=== PATIENT | male | born 1960 | race American Indian/Alaskan Native ===

== ENCOUNTER 2018-01-05 11:24 | Emergency (ER) | payer OTHER ==
--- NOTE | 2018-01-05 12:48 | C.PDOC ---
History Of Present Illness 57 y/o male with a history of diabetes, non compliant with meds, presents to the ED complaining of fatigue, weakness, frequent urination, and loose stools. He denies chest pain, shortness of breath, nausea, or vomiting. Patient also complains of irritation under the nose. No toothache or sore throat Time Seen by Provider: 01/05/18 12:08 Chief Complaint (Nursing): Medical Clearance History Per: Patient History/Exam Limitations: no limitations Onset/Duration Of Symptoms: Days Current Symptoms Are (Timing): Still Present Past Medical History Reviewed: Historical Data, Nursing Documentation, Vital Signs Vital Signs: Last Vital Signs Temp 97.3 F L 01/05/18 14:53 Pulse 72 01/05/18 14:53 Resp 20 01/05/18 14:53 BP 114/71 01/05/18 14:53 Pulse Ox 97 01/05/18 14:53 - Medical History PMH: Diabetes Family History: States: No Known Family Hx - Social History Hx Alcohol Use: No Hx Substance Use: No - Immunization History Hx Tetanus Toxoid Vaccination: No Hx Influenza Vaccination: No Hx Pneumococcal Vaccination: No Review Of Systems Except As Marked, All Systems Reviewed And Found Negative. Constitutional: Positive for: Weakness, Malaise, Other (fatigue) Physical Exam - Physical Exam Appears: Non-toxic, No Acute Distress Skin: Normal Color, Warm Head: Atraumatic, Normacephalic Eye(s): bilateral: Normal Inspection, PERRL, EOMI Nose: Other (mild irritation to the philtrum of face) Teeth: Normal Dentition, Other (no abscess) Neck: Normal, Supple Chest: Symmetrical Cardiovascular: Rhythm Regular, No Murmur Respiratory: Normal Breath Sounds, No Rales, No Rhonchi, No Wheezing Gastrointestinal/Abdominal: Normal Exam, Soft, No Tenderness, No Distention Extremity: Bilateral: Atraumatic, Normal Color And Temperature, Normal ROM Neurological/Psych: Oriented x3, Normal Speech ED Course And Treatment - Laboratory Results Result Diagrams: 01/05/18 13:06 01/05/18 13:06 ECG: Interpreted By Me ECG Rhythm: Sinus Rhythm (at 77BPM with normal intervals, LVH, T wave inversion at leads 3 and aVF) O2 Sat by Pulse Oximetry: 99 (RA) Pulse Ox Interpretation: Normal - Other Rad Chest X-Ray: Read By Radiologist Interpretation: FINDINGS: LINES AND TUBES: None. LUNG AND PLEURA: The lungs are well inflated and clear. HEART AND MEDIASTINUM: The heart is not enlarged. The hilar and mediastinal contours are within normal limits. SKELETAL STRUCTURES: The bony structures are within normal limits for the patient's age. VISUALIZED UPPER ABDOMEN: Normal. OTHER FINDINGS: None. IMPRESSION: No active pulmonary disease. Medical Decision Making Medical Decision Making: IMPRESSION: Weakness and Early Cellulitis Plan: --EKG --CMP Panel --TROPONIN --CBC W/Differential --XR Chest Two Views --Glucose, POC --IV Fluids 1000ml --Urinalysis 2:16 Patient reports feeling better. Repeat blood sugar is 256. Patient will be discharged home and follow up with Medical clinic. Disposition Counseled Patient/Family Regarding: Studies Performed, Diagnosis, Need For Followup, Rx Given - Disposition Referrals: [facility] [Outside] Disposition: HOME/ ROUTINE Disposition Time: 14:12 Condition: IMPROVED Additional Instructions: follow up with medical clinic in 2 days call to make an appointment take medications as prescribed return to ER if symptoms worsens or progress Prescriptions: MetFORMIN [glucoPHAGE] 500 mg PO BID #40 tab Instructions: Hyperglycemia, Adult (DC) Forms: [facility] (Kosovan), General Discharge Instructions - Clinical Impression Clinical Impression: Diabetes - Scribe Statement The provider has reviewed the documentation as recorded by the Scribe (Marta Friend) Provider Attestation: All medical record entries made by the Scribe were at my direction and personally dictated by me. I have reviewed the chart and agree that the record accurately reflects my personal performance of the history, physical exam, medical decision making, and the department course for this patient. I have also personally directed, reviewed, and agree with the discharge instructions and disposition.
[2018-01-05] MEDS ORDERED: Sodium Chloride 0.9% 1,000 ML IV ONE (13:03)
[2018-01-05 13:21] LABS: URINE BILIRUBIN NEGATIVE (NEGATIVE); URINE BLOOD NEGATIVE (NEGATIVE); URINE CLARITY Clear (Clear); URINE COLOR Straw (YELLOW); URINE GLUCOSE (UA) 3+ mg/dL (Normal); URINE LEUKOCYTE ESTERASE NEG Leu/uL (Negative); URINE PROTEIN NEGATIVE (NEGATIVE); URINE UROBILINOGEN NORMAL mg/dL (0.2-1.0)
[2018-01-05 13:22] LABS: BASO % 0.4 % (0.0-2.0); EOS % 0.4 % (0.0-4.0); HEMOGLOBIN 14.2 g/dL (12.0-18.0); LYMPH # 0.7 K/uL (1.0-4.3); LYMPH % 26.5 % (20.0-40.0); MEAN CELL VOLUME 88.6 fL (80.0-94.0); MEAN CORPUSCULAR HEMOGLOBIN 30.5 pg (27.0-31.0); MEAN CORPUSCULAR HGB CONC 34.4 g/dL (33.0-37.0); MONO # 0.3 K/uL (0.0-0.8); MONO % 10.4 % (0.0-10.0); NEUT # 1.7 K/uL (1.8-7.0); NEUT % 62.3 % (50.0-75.0); NRBC % 0.2 % (0.0-2.0); RBC 4.64 Mil/uL (4.40-5.90)
[2018-01-05 13:23] LABS: WHITE BLOOD COUNT 2.8 K/uL (4.8-10.8)
[2018-01-05 13:38] LABS: ALT/SGPT 23 U/L (21-72); AST/SGOT 24 U/L (17-59); BLOOD UREA NITROGEN 16 mg/dL (9-20); CALCIUM 9.1 mg/dl (8.6-10.4); GFR AFRICAN-AMERICAN > 60; GFR NON-AFRICAN AMERICAN > 60
[2018-01-05] MEDS ORDERED: (Novolin R) Insulin Human Regular 100 units/ml vial IV ONE (13:44)
[2018-01-05] MEDS ORDERED: (Novolin R) Insulin Human Regular 100 units/ml vial ONE (13:49)
[2018-01-05 14:54] VITALS: BP 114/71; PULSE 72; RESP 20; TEMP 97.3
--- NOTE | 2018-01-06 20:26 | CARD ---
APPROVED REPORT EKG Measurement Heart [id number] <Conclusion> Normal sinus rhythm with sinus arrhythmia Possible Left atrial enlargement Left ventricular hypertrophy Abnormal ECG
[2018-01-07 08:01] VITALS: O2SAT 99
== END 2018-01-05 15:17 | disposition home or self-care (01) ==
LOC: C.ER 11:24
DX: E11.9 Type 2 diabetes mellitus without complications (principal); Z91.14 Patient's other noncompliance with medication regimen
CPT/HCPCS: 71046; 80053; 81001; 82948; 84484; 85025; 93005; 96374; 99282; J7040

== ENCOUNTER 2018-01-08 10:42 | Emergency (ER) | payer OTHER ==
--- NOTE | 2018-01-08 11:44 | C.PDOC ---
History Of Present Illness 57 y/o male with a history of diabetes, presents to the ED accompanied by niece for evaluation of high sugar 220 today. She states patient has been taking Metformin but his sugar remains higher than 100. He complains of frequent urination. He denies chest pain, shortness of breath, nausea, or vomiting, abdominal pain or weakness. Time Seen by Provider: 01/08/18 11:34 Chief Complaint (Nursing): High Blood Sugar History Per: Patient History/Exam Limitations: no limitations Onset/Duration Of Symptoms: Days Past Medical History Reviewed: Historical Data, Nursing Documentation, Vital Signs Vital Signs: Last Vital Signs Temp 98 F 01/08/18 11:49 Pulse 78 01/08/18 11:49 Resp 18 01/08/18 11:49 BP 136/76 01/08/18 11:49 Pulse Ox 98 01/08/18 11:49 - Medical History PMH: Diabetes Family History: States: No Known Family Hx - Social History Hx Alcohol Use: No Hx Substance Use: No - Immunization History Hx Tetanus Toxoid Vaccination: No Hx Influenza Vaccination: No Hx Pneumococcal Vaccination: No Review Of Systems Except As Marked, All Systems Reviewed And Found Negative. Cardiovascular: Negative for: Chest Pain, Palpitations Respiratory: Negative for: Shortness of Breath Gastrointestinal: Negative for: Vomiting, Abdominal Pain Genitourinary: Positive for: Frequency Neurological: Negative for: Weakness, Headache, Dizziness Physical Exam - Physical Exam Appears: Non-toxic, No Acute Distress Skin: Normal Color, Warm, Dry, No Rash Head: Normacephalic Eye(s): bilateral: PERRL Nose: Normal Oral Mucosa: Moist Lips: Normal Appearing Neck: Normal ROM Chest: Symmetrical Cardiovascular: Rhythm Regular, No Murmur Respiratory: Normal Breath Sounds, No Accessory Muscle Use Extremity: Normal ROM, No Deformity, No Swelling Neurological/Psych: Oriented x3, Normal Speech ED Course And Treatment O2 Sat by Pulse Oximetry: 99 (RA) Pulse Ox Interpretation: Normal Medical Decision Making Medical Decision Making: Accucheck was 181mg/dL. Patient appears nontoxic and in no distress Prior records reviewed patient was seen recently 3 days ago on 01/05 for hyperglycemia. Labs showed glucose over 300, and no other abnormalities. Patient treated with IV fluid and given Rx Metformin. Disposition - Disposition Referrals: Mariya Hines MD [Staff Provider] - Disposition: HOME/ ROUTINE Disposition Time: 11:43 Condition: STABLE Additional Instructions: Follow up with the clinic in 1-2 days Be sure to take your Metformin twice a day You may call [facility] for any assistance [phone]. Instructions: Diabetes and Diet Forms: [facility] (Jamaican) - POA Present On Arrival: Poor Glycemic Control - Clinical Impression Clinical Impression: Hyperglycemia - Scribe Statement The provider has reviewed the documentation as recorded by the Scribe (Ricki Pagan) All medical record entries made by the Scribe were at my direction and personally dictated by me. I have reviewed the chart and agree that the record accurately reflects my personal performance of the history, physical exam, medical decision making, and the department course for this patient. I have also personally directed, reviewed, and agree with the discharge instructions and disposition.
[2018-01-08 11:50] VITALS: BP 136/76; PULSE 78; RESP 18; TEMP 98
[2018-01-08 14:40] VITALS: O2SAT 99
== END 2018-01-08 11:50 | disposition home or self-care (01) ==
LOC: C.ER 10:42
DX: E11.65 Type 2 diabetes mellitus with hyperglycemia (principal); Z79.84 Long term (current) use of oral hypoglycemic drugs

== ENCOUNTER 2018-05-07 11:30 | Emergency (ER) | payer OTHER ==
[2018-05-07 11:30] VITALS: BMI 29.9
[2018-05-07 11:41] VITALS: O2SAT 98
--- NOTE | 2018-05-07 12:17 | C.PDOC ---
History Of Present Illness 57 y/o male presents to ED with c/o penile pain, dysuria and penile discharge for 2 days after having unprotected sex with same partner. Patient admits to increased urinary frequency and denies fever, chills, abdominal pain, back pain or any other complaints at this time. Chief Complaint (Nursing): Male Genitourinary History Per: Patient History/Exam Limitations: no limitations Onset/Duration Of Symptoms: Days Current Symptoms Are (Timing): Still Present Quality Of Discomfort: "Pain" Associated Symptoms: Urinary Symptoms Past Medical History Reviewed: Historical Data, Nursing Documentation, Vital Signs Vital Signs: Last Vital Signs Temp 98.8 F 05/07/18 13:30 Pulse 75 05/07/18 13:30 Resp 16 05/07/18 13:30 BP 110/74 05/07/18 13:30 Pulse Ox 98 05/07/18 13:30 - Medical History PMH: Diabetes Surgical History: No Surg Hx Family History: States: No Known Family Hx - Social History Hx Alcohol Use: No Hx Substance Use: No - Immunization History Hx Tetanus Toxoid Vaccination: No Hx Influenza Vaccination: No Hx Pneumococcal Vaccination: No Review Of Systems Constitutional: Negative for: Fever, Chills Gastrointestinal: Negative for: Vomiting, Abdominal Pain Genitourinary: Positive for: Dysuria, Penile Discharge, Penile Pain. Negative for: Hematuria Musculoskeletal: Negative for: Back Pain Skin: Negative for: Rash Physical Exam - Physical Exam Appears: Non-toxic, No Acute Distress Skin: Warm, Dry, No Rash Head: Atraumatic, Normacephalic Eye(s): bilateral: Normal Inspection Oral Mucosa: Moist Cardiovascular: Rhythm Regular Respiratory: Normal Breath Sounds, No Rales, No Rhonchi, No Wheezing Gastrointestinal/Abdominal: Soft, No Tenderness, No Guarding, No Rebound Male Genital: Other (redness on urethra noted. (+)Penile pain. No rash or discharge notedf) Extremity: Normal ROM, Capillary Refill (<2 seconds) Neurological/Psych: Oriented x3, Normal Speech, Normal Cognition ED Course And Treatment O2 Sat by Pulse Oximetry: 98 (RA) Pulse Ox Interpretation: Normal Disposition - Disposition Referrals: [facility] [Outside] [facility] [Outside] Disposition: HOME/ ROUTINE Disposition Time: 12:15 Condition: GOOD Additional Instructions: BETHANIE BUCKLEY, thank you for letting us take care of you today. The emergency medical care you received today was directed at your acute symptoms. If you were prescribed any medication, please fill it and take as directed. It may take several days for your symptoms to resolve. Return to the Emergency Department if your symptoms worsen, do not improve, or if you have any other problems. Please contact your doctor or call one of the physicians/clinics you have been referred to that are listed on the Patient Visit Information form that is included in your discharge packet. Bring any paperwork you were given at discharge with you along with any medications you are taking to your follow up visit. Our treatment cannot replace ongoing medical care by a primary care provider outside of the emergency department. Thank you for allowing the [facility] team to be part of your care today. You had an STI test: It will take 48 hours for the results. Please call after 1 week if you have not heard back. Follow up with the clinic in 3-5 days for re-evaluation and further management. Instructions: Sexually-Transmitted Diseases (DC) Forms: [employer] (Guamanian) - Clinical Impression Clinical Impression: Possible exposure to STD - Scribe Statement The provider has reviewed the documentation as recorded by the Thienibe Elliot Mcfarlane All medical record entries made by the Eduardo were at my direction and personally dictated by me. I have reviewed the chart and agree that the record accurately reflects my personal performance of the history, physical exam, medical decision making, and the department course for this patient. I have also personally directed, reviewed, and agree with the discharge instructions and disposition.
[2018-05-07] MEDS ORDERED: cefTRIAXone (Rocephin) 250 mg Inj IM STA (12:23)
[2018-05-07 13:35] VITALS: BP 110/74; PULSE 75; RESP 16; TEMP 98.8
== END 2018-05-07 13:32 | disposition home or self-care (01) ==
LOC: C.ER 11:30
DX: N48.89 Other specified disorders of penis (principal)
CPT/HCPCS: 82948; 96372; 99285; J0696